=== PATIENT | female | born 2000 | race African-American/Black ===

== ENCOUNTER 2020-01-16 06:50 | Emergency (ER) | payer OTHER ==
[~2020-01-16] VITALS: Ht 182.9 cm; Wt 93.9 kg
[2020-01-16] MEDS ORDERED: SODIUM CHLORIDE 0.9% 1000ML 1,000 ML IV STA (07:21)
[2020-01-16] MEDS ORDERED: SODIUM CHLORIDE FLUSH 10 ML SYR INJ PRN (07:30)
--- NOTE | 2020-01-16 07:35 | Emergency Department Note ---
History of Present Illnes History of Present Illness Chief Complaint: high blood sugar(495) History of Present Illness This is a 19 year old female. was doing well until 2 hours ago then had a mild saavedra and mild bv then wx=548. no other symptoms. pt said that baseline blood glucose= 200's Historian: Patient Arrival Mode: Car History limited by: condition of the patient (normal) Popcorn Attendant Required: No Onset (how long ago): hour(s) (2) Location: n/a Quality: n/a Radiation: Reports non-radiation Severity: moderate Onset quality: gradual Duration (how long): hour(s) (2) Timing of current episode: constant Progression: unchanged Chronicity: recurrent Context: Denies recent illness, Denies recent surgery, Denies recent immobilization, Denies recent travel, Denies trauma/injury, Denies new medications, Denies hx of DVT/PE, Denies non-compliance w/ medications Relieving factors: none Exacerbating factors: none Associated symptoms: Reports other (see above) Treatments prior to arrival: none Past Medical/Family History Physician Review I have reviewed the patient's past medical and family history. Any updates have been documented here. Past Medical History Recent Fever: No Clinical Suspicion of Infectio: No New/Unexplained Change in Ment: No Past Medical History: Diabetes Past Surgical History: T&A Other Surgery: WISDOM TEETH REMOVAL BILAT CALF/ANKLE Social History Smoking Cessation: Never Smoker Alcohol Use: None Any Illegal Drug Use: No Other Last Tetanus: +utd Any Pre-Existing Lines (PICC,: No Review of Systems Review of Systems Constitutional: Reports no symptoms EENTM: Reports as per HPI Cardiovascular: Reports no symptoms Respiratory: Reports no symptoms Gastrointestinal: Reports no symptoms Genitourinary: Reports no symptoms Musculoskeletal: Reports no symptoms Integumentary: Reports no symptoms Neurological: Reports as per HPI Psychological: Reports no symptoms Endocrine: Reports no symptoms Hematological/Lymphatic: Reports no symptoms Review of other systems: All other systems negative Physical Exam Related Data Allergies: Uncoded Allergies: MINTS (Allergy, Unknown, 01/16/20) Triage Vital Signs Vital Signs Date Time Temp Pulse Resp B/P (MAP) Pulse Ox O2 Delivery O2 Flow Rate FiO2 01/16/20 07:21 97.9 93 16 153/86 100 Room Air Vital signs reviewed: Yes Physical Exam CONSTITUTIONAL Constitutional: Present well-developed, Present well-nourished HENT HENT: Present normocephalic, Present atraumatic, Present oropharynx clear/moist, Present nose normal HENT L/R: Present left ext ear normal, Present right ext ear normal EYES Eyes: Reports PERRL, Reports conjunctivae normal NECK Neck: Present ROM normal, Present supple PULMONARY Pulmonary: Present effort normal, Present breath sounds normal CARDIOVASCULAR Cardiovascular: Present regular rhythm, Present heart sounds normal, Present capillary refill normal, Present normal rate GASTROINTESTINAL Abdominal: Present soft, Present nontender, Present bowel sounds normal GENITOURINARY Genitourinary: Present exam deferred SKIN Skin: Present warm, Present dry MUSCULOSKELETAL Musculoskeletal: Present ROM normal NEUROLOGICAL Neurological: Present alert, Present oriented x 3, Present no gross motor or sensory deficits PSYCHOLOGICAL Psychological: Present mood/affect normal, Present judgement normal Results Laboratory Lab results reviewed: Yes Laboratory comments accucheck= 517, bmp normal except elevated bg, 2nd accucheck s/p meds/ivfs= 399 Assessment & Plan Medical Decision Making MDM see below Assessment & Plan Final Impression: (1) Hyperglycemia (2) Diabetes (3) Medication refill Depart Disposition: HOME, SELF-CARE Last Vital Signs Date Time Temp Pulse Resp B/P (MAP) Pulse Ox O2 Delivery O2 Flow Rate FiO2 01/16/20 07:21 97.9 93 16 153/86 100 Room Air Home Meds Active Scripts Insulin Lispro (HUMALOG) 100 Unit/1 Ml Cartridge, 0 SQ sliding scale, #1 BOTTLE 2 Refills Prov:JONATHAN BILL 01/16/20 Medications in the ED Sodium Chloride 10 ml PRN PRN INJ IV SITE FLUSH; Start 01/16/20 at 07:30; Stop 02/15/20 at 07:29; Status UNV Sodium Chloride 1,000 ml @ 1,000 mls/hr Q1H STAT IV ; Start 01/16/20 at 07:21; Stop 01/16/20 at 08:20 JONATHAN BILL Jan 16, 2020 07:34
[2020-01-16] MEDS ORDERED: SODIUM CHLORIDE 0.9% 1000ML 1,000 ML ONE (07:45)
[2020-01-16] MEDS ORDERED: INSULIN REGULAR, HUMAN 100 UNIT/1 ML 3ML VIAL IV ONE (07:45)
[2020-01-16] MEDS ORDERED: HUMALOG100 UNIT/1 SQ (09:06)
[2020-01-16 09:15] VITALS: BP 150/80
--- OUTSIDE RECORDS SUMMARY | 2020-01-16 09:26 | XMS REPORT | Clinical Summary ---
Author Author T[facility] Address Unknown Phone Unavailable Care Team Providers Care Job Analyst Name Role Phone Pamela Shetty PCP Unavailable Allergies No Known Allergies Medications End Date Status Medication Sig Dispensed Refills Start Date Active famotidine (PEPCID) 20 MG Take 1 tablet 30 tablet 0 tablet (20 mg total) 7 by mouth 2 (two) times daily. Active insulin aspart U-100 SLIDING SCALE 3 mL 0 (NOVOLOG FLEXPEN U-100 - TAKE 0 INSULIN) 100 unit/mL (3 NORMALLY mL) InPn PRESCRIBED. Active insulin glargine (LANTUS) SLIDING SCALE 15 mL 0 100 unit/mL (3 mL) InPn - TAKE 0 NORMALLY PRESCRIBED. 09/28/2019 Discontinued glucagon (GLUCAGON) 1 mg USE 0 10/08 injection DIRECTED FOR 8 SEVERE LOW BLOOD GLUCOSE: SEIZURE OR UNCONSCIOUS 09/28/2019 Discontinued insulin aspart U-100 Pt takes up 0 (NOVOLOG FLEXPEN U-100 to 50units a 8 INSULIN) 100 unit/mL InPn day. Need to set up followup appt for more refills 09/28/2019 Discontinued insulin glargine (LANTUS) Pt takes up 0 100 unit/mL (3 mL) InPn to 50 units a 8 day 09/28/2019 Discontinued fluconazole (DIFLUCAN) Take 1 tablet 2 tablet 0 0 150 MG tablet (150 mg 9 total) by mouth every third day for 2 doses. 10/03/2019 nitrofurantoin, Take 1 10 capsule 0 macrocrystal-monohydrate, capsule (100 0 (MACROBID) 100 MG capsule mg total) by mouth 2 (two) times daily for 5 days. Active Problems Not on file Encounters Care Team Description Date Type Specialty Teodoro Dhillon MD Acute urinary tract infection (Primary D x); Diabetes mellitus due to underlying condition, uncontrolled, with hyperglycemia (HCC); Dehydration; Leukocytosis, unspecified type 09/28/2019 Emergency Emergency Medicine 09/28/2019 Travel after 01/15/2019 Social History Date Tobacco Use Types Packs/Day Years Used Never Smoker Smokeless Tobacco: Never Used Alcohol Use Drinks/Week oz/Week Comments No Sex Assigned at Date Recorded Not on file Industry Job Start Date Occupation Not on file Not on file Not on file Travel End Travel History Travel Start No recent travel history available. Last Filed Vital Signs Time Taken Vital Sign Reading 09/28/2019 9:34 AM CDT Blood Pressure 128/72 09/28/2019 9:34 AM CDT Pulse 88 09/28/2019 7:19 AM CDT Temperature 37 C (98.6 F) 09/28/2019 9:34 AM CDT Respiratory Rate 18 09/28/2019 9:34 AM CDT Oxygen Saturation 98% - Inhaled Oxygen - Concentration 09/28/2019 7:19 AM CDT Weight 91.6 kg (202 lb) 09/28/2019 7:19 AM CDT Height 182.9 cm (6') 09/28/2019 7:19 AM CDT Body Mass Index 27.4 Plan of Treatment Not on file Procedures Comments Procedure Name Priority Date/Time Associated Diag nosis CBC W/PLT COUNT & AUTO STAT 09/28/2019 DIFFERENTIAL 7:52 AM CDT CBC W/PLT COUNT & AUTO STAT 09/28/2019 DIFFERENTIAL 7:52 AM CDT BASIC METABOLIC PANEL (7) STAT 09/28/2019 7:52 AM CDT SCREEN, URINE STAT 09/28/2019 7:52 AM CDT URINALYSIS W/ MICROSCOPIC STAT 09/28/2019 7:52 AM CDT after 01/15/2019 Results * CBC with platelet count + automated diff (09/28/2019 7:52 AM CDT) WBC 14.5 (H) 4.0 - 10.0 K/L [facility], [facility] [place] RBC 7.18 (H) 4.00 - 5.00 M/L [facility], [facility] [place] Hemoglobin 11.7 (L) 12.0 - 15.0 GM/DL [facility] [place] Hematocrit 40.9 36.0 - 45.0 % [facility] [place] MCV 56.9 (L) 82.0 - 99.0 fL [facility] [place] MCH 16.3 (L) 27.0 - 33.0 pg [facility] [place] MCHC 28.7 (L) 32.0 - 36.0 GM/DL [facility] [place] RDW 16.3 (H) 10.3 - 14.2 % [facility] [place] Platelets 418 150 - 430 K/CU MM [facility] [place] MPV 8.3 6.5 - 10.5 fL [facility] [place] % Neutros 60 % [facility] % Lymphs 30 % [facility] % Monos 8 % [facility] [place] % Eos 2 % [facility] [place] % Baso 1 % [facility] [place] # Neutros 8.71 (H) 1.80 - 8.00 K/L [facility] [place] # Lymphs 4.33 1.48 - 4.50 K/L [facility] [place] # Monos 1.12 0.00 - 1.30 K/L [facility] # Eos 0.23 0.00 - 0.50 K/L [facility], [facility] [place] # Baso 0.13 0.00 - 0.20 K/L [facility], [facility] Specimen Blood Performing Organization Address City/[facility] Ph one Number [address] [address] -[phone] [place] [address], [facility] * Screen, urine (09/28/2019 7:52 AM CDT) Preg Test, Ur Negative [facility] Specimen Urine Performing Organization Address [facility] [facility] [address] [address] [facility] -[address] [facility] [place] * Urinalysis w/Microscopic (09/28/2019 7:52 AM CDT) Color, UA Yellow [facility] Clarity, UA Slightly Cloudy [facility] [place] Specific Freeman, UA 1.025 1.001 - 1.035 [facility] pH, UA 5.5 5.0 - 8.0 [facility] Protein, UA >=300 mg/dL (A) Negative [facility] Glucose, UA 500 mg/dL (A) Negative [facility] Ketones, UA Trace (A) Negative [facility], [facility] [place] Bilirubin, UA Negative Negative [facility], [facility] [place] Blood, UA Large (A) Negative [facility] Nitrite, UA Negative Negative [facility] Leukocytes, UA Trace (A) Negative [facility], [facility] Urobilinogen, UA 1.0 0.2 - 1.0 mg/dL [facility], [facility], [facility] Bacteria, UA Many [facility] Yeast Few [facility] RBC, UA 20-50 /HPF [facility] WBC, UA 10-20 /HPF [facility] SQUAMOUS EPITHELIAL <5 /HPF [facility] [place] Specimen Source [facility] Specimen Urine Performing Organization Address City/State/Zipcode Ph one Number [facility] [address] [place] [address] [phone] [facility], [facility] [place] * Basic Metabolic Panel (09/28/2019 7:52 AM CDT) Sodium 136 135 - 148 meq/L [facility], [facility], [facility] Potassium 4.0 3.6 - 5.5 meq/L [facility], [facility], [facility] Chloride 103 98 - 106 meq/L [facility], [facility], [facility] CO2 22 (L) 24 - 32 meq/L [facility] BUN 11 10 - 26 mg/dL [facility], [facility] [place] Creatinine 0.52 0.50 - 1.20 mg/dL [facility], [facility] [place] Glucose 307 (H) 70 - 110 mg/dL [facility], [facility] [place] Calcium 9.5 8.5 - 10.5 mg/dL [facility], [facility] [place] EGFR 182Comment: ESTIMATED GFR IS mL/min/1.73 sq m [facility] NOT ACCURATE CREATININE FORMERLY [facility] CLEARANCE IN [facility] GLOMERULAR FILTRATION RATE. EMERGENCY CENTER, ESTIMATED GFR IS NOT [facility] APPLICABLE FOR DIALYSIS PATIENTS. Specimen Blood Performing Organization Address City/State/Zipcode Ph one Number [facility] [address] [place] [address] [phone] [facility], [facility] [place] after 01/15/2019 Insurance Payer Benefit Subscriber ID Type Phone Address Plan / Group [employer] - MGD CARE [employer] xxxxxxxxxxx HMO/POS HMO/POS/OP EN ACCESS [id number]
--- OUTSIDE RECORDS SUMMARY | 2020-01-16 09:26 | XMS REPORT | Continuity of Care Document ---
Author Author [facility] t Organization [facility] Address [address] [place] [address] Phone Unavailable Care Team Providers Care Flexographic Press Helper Name Role Phone DiogenesPauly Pamela PCP Unavailable Roberta Lopez MD Attphys Roberta LOPEZ Attphys Unavailable Ribeiro, Myrissa Attphys Unavailable Audelia Manrique Attphys Fatmata Marks Attphys Amparo Barriga Attphys Unavailable Adeel Garcia Attphys Unavailable Shelley Olvera Attphys Unavailable Sarita Tillman Attphys Unavailable Bhakhrani, Jackie Attphys Rosemary Pedro Attphys Sky Villalba Attphys Diana Fair Attphys Unavailable Hanny Lomas Attphys Mila Yoo Attphys Unavailable QAMAR NUBIA DHUHA Attphys Unavailable JOSUÉ SHAVER Attphys Unavailable GABI SANCHES Attphys Unavailable Audelia Manrique Unavailable Bhakhrani, Jackie Unavailable Payers Payer Name Policy Type Policy Number Effective Date Expiration Date Susi gibson CIGNA - MGD CARECIGNA HMO/POS/OPEN ACCESSxxxxxxxxxxxHMO/POS xxxxxxxxxxx [facility] [id number] 2018 00:00:00 2019 00:00 :00 [facility] [id number] 2018 00:00:00 2019 00:00 :00 [facility] Problems Condition Name Condition Details Condition Category Status Onset Date Resolution Date Last Treatment Date Treating Clinician Comments Source Exposure to sexually transmissible disorder Condition Active 2019-06-02 00:00:00 2019-06-04 14:28:02 [facility] Std screening Condition Active 2019-06-02 00:00:00 2019 14:28:02 [facility] Immunity status testing, antibody response Condition Active 2019-06-02 00:00:00 2019-06-04 14:28:02 [facility] Vaginitis Condition Active 2019-06-02 00:00:00 14:28:02 [facility] Microalbuminuria Condition Active 2019-06-02 00:00:00 2 14:28:02 [facility] BMI 32.0-32.9 Condition Active 2019-06-02 00:00:00 2019 14:28:02 [facility] Dietary surveillance and counseling Condition Active 2018 00:00:00 2019-03-01 10[facility]21:[facility] Condition Active 2019-02-02 00:00:00 2019-03-01 10:21:42 Burton [facility] ealt Mixed hyperlipidemia Condition Active 2019-02-28 00:00:00 2019-03-01 10:21:42 Audelia Manrique [facility] ealt Long-term (current) use of insulin Condition Active 02-28 00:00:00 2019-03-01 10:21:42 Audelia Manrique [facility] ealt Uncontrolled type II diabetes mellitus Condition Active 2 00:00:00 2019-03-01 10:21:42 Audelia Manrique [facility] 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 Born in [facility]. City: [facility] . State: [place]. Not employed. Highest education level: some college. Sex at : Female. Sexual orientation: Heterosexual. Gender identity: Female. Gender of partner(s): Male. Sexually Active: Yes. [facility] social history reviewed E&M 2019-06-02 15:17:34 2019-06-02 15:17 :34 reviewed today [facility] nutrition assessment, food choices, frequency per day, coffee and tea 2019-06-02 15:17:34 2019-06-02 15:17:34 1-2 cups/day [facility] nutrition assessment, food choices, frequency per day, sugary beverages 2019-06-02 15:17:34 2019-06-02 15:17:34 0 cups/day [facility], food choices, frequency per day, water 2019-06-02 15:17:34 2019-06-02 15:17:34 7+ cups/day [facility] nutrition assessment, food choices, servings per day, carbohydrates 2019-06-02 15:17:34 2019-06-02 15:17:34 7+ [facility] nutrition assessment, food choices, frequency per week , snack foods 2019-06-02 15:17:34 2019-06-02 15:17:34 1-2x/week [facility] nutrition assessment, food choices, freq uency per week, restaurant and fast food meals 2019-06-02 15:17:34 2019-06-02 15:17:34 [facility]day [facility] assessment, food choices, frequency per week , fried foods 2019-06-02 15:17:34 2019-06-02 15:17:34 Rarely/Never [facility] nutrition assessment, food choices, frequency per week , sweets 2019-06-02 15:17:34 2019-06-02 15:17:34 1-2x/week [facility] nutrition assessment, food choices, frequency per week , fats and oils 2019-06-02 15:17:34 2019-06-02 15:17:34 Rarely/Never [facility] nutrition assessment, food choices, frequency per week , vegetable proteins 2019-06-02 15:17:34 2019-06-02 15:17:34 Rarely/Never [facility] nutrition assessment, food choices, frequency per week , fish and seafood 2019-06-02 15:17:34 2019-06-02 15:17:34 Rarely/Never [facility] nutrition assessment, food choices, frequency per week , processed meats 2019-06-02 15:17:34 2019-06-02 15:17:34 1-2x/week [facility] nutrition assessment, food choices, freq uency per week, deli meats and cold cuts 2019-06-02 15:17:34 2019-06-02 15:17:34 Rarely/Never [facility] nutrition assessment, food choices, frequency per week , chicken and turkey 2019-06-02 15:17:34 2019-06-02 15:17:34 1-2x/week [facility] nutrition assessment, food choices, frequency per week , pork 2019-06-02 15:17:34 2019-06-02 15:17:34 Rarely/Never [facility] nutrition assessment, food choices, frequency per week , red meat 2019-06-02 15:17:34 2019-06-02 15:17:34 Rarely/Never [facility] nutrition assessment, food choices, frequency per week , dairy items 2019-06-02 15:17:34 2019-06-02 15:17:34 1-2x/week [facility] nutrition assessment, food choices, frequency per week , vegetables 2019-06-02 15:17:34 2019-06-02 15:17:34 Rarely/Never [facility] nutrition assessment, 24-hour food intake recall, even ing snack 2019-06-02 15:17:34 2019-06-02 15:17:34 2 oranges, piece of cheese, 2 sugar free jellos and 4 grapes [facility] nutrition assessment, food choices, frequency per week , fruits 2019-06-02 15:17:34 2019-06-02 15:17:34 1-2x/week [facility], 24-hour food intake recall, dinner 202 15:17:34 2019-06-02 15:17:34 water [facility] nutrition assessment, 24-hour food intake recall, breakfast 2019-06-02 15:17:34 2019-06-02 15:17:34 enchilada [facility] nutrition assessment, 24-hour food intake recall, lunch 2019 15:17:34 2019-06-02 15:17:34 chicken , burger 1 taco and strawberry shake [facility] nutrition assessment, history, food intake 2019-06-02 15:17: 34 2019-06-02 15:17:34 Good [facility] nutrition assessment, history, do you do any exercise or physical activity? 2019-06-02 15:17:34 2019-06-02 15:17:34 [facility], history, do you do your own cooking and/or grocery shopping? 2019-06-02 15:17:34 2019-06-02 15:17:34 [facility], history, any weight change in th e past 6 months? 2019-06-02 15:17:34 2019-06-02 15:17:34 Yes [facility] lactose intolerant diet 2019-06-02 15:17:34 2019-06-02 15:17:34 No [facility] nutrition assessment, history, do you avoid any certai n foods or drinks? 2019-06-02 15:17:34 2019-06-02 15:17:34 [facility] drug use, illicit 2019-06-02 14:21:58 2019-06-02 14:21:58 Never [facility] alcohol use 2019-06-02 14:21:58 2019-06-02 14:21:58 Never [facility] sexual orientation 2019-06-02 14:21:58 2019-06-02 14:21:58 Heterosexu al On [facility] assessment of health literacy (NCQA [facility] 2014 Standard s, 3C10) 2019-06-02 14:21:58 2019-06-02 14:21:58 Adequate [facility] is there any chance that you could be ? 2019-06-02 1 4:21:58 2019-06-02 14:21:58 No [facility] passive cigarette smoke exposure 2019-06-02 14:21:58 2019-06-02 14:21 :58 No [facility] sex at 2019-02-28 10:26:00 2019-02-28 10:26:00 Female [facility] Smoking Status Start Date Stop Date Source Never smoker [facility] Medications Ordered Medication Name Filled Medication Name Start Date Stop Da te Current Medication? Ordering Clinician Indication Dosage Frequency Signature (SIG) Comments Components Source insulin aspart U-100 (NOVOLOG FLEXPEN U-100 INSULIN) 100 uni t/mL (3 mL) [facility] 2019-09-28 00:00:00 Yes SLIDING SCAL E - TAKE NORMALLY [facility]CRIB[facility]. [facility] glarg[facility] (LANTUS) 100 unit/mL (3 mL) [facility] 2019-09-28 00:00:00 Yes SLIDING SCALE - TAKE NORMALLY PRESCRIBED. [facility] nitrofurantoin, macrocrystal-monohydrate, (MACROBID) 100 MG capsule 2019-09-28 00:00:00 2019-10-03 23:59:00 No 100mg Q.5D Take 1 capsule (100 mg total) by mouth 2 (two) times daily for 5 days. [facility] DIFLUCAN (FLUCONAZOLE) 150 MG TABS 2019-06-02 00:00:00 Yes Audelia Manrique 1{Tablet} 1xD 1 by mouth daily for 2 days [facility] (ATORVASTATIN CALCIUM) 10 MG TABS 2019-03-07 00:00:00 Yes Audelia Manrique take one tab By Mouth take at bedtime fo r cholesterol [facility] INSUPEN PEN NEEDLES (INSULIN PEN NEEDLE) 32G X 4 MM 2018-05 00:00:00 Yes Audelia Manrique use with insulin pens as dire cted [facility] LANTUS SOLOSTAR (INSULIN GLARGINE) 100 UNIT/ML SOP 2018-05 00:00:00 Yes Audelia Manrique inject 30 u nits subcutaneously take at bedtime for diabetes [facility] NOVOLOG FLEXPEN (INSULIN ASPART) 100 UNIT/ML SOP 00:00:00 Yes Audelia Manrique inject 15 u nits before meals three times daily subcutaenous for diabetes [facility] (CIPROFLOXACIN HCL) 0.3 % [facility] 2019-02-18 00:00:00 2019-02 00:00:00 No Jackie Bhakhrani 1{Drop} 4xD 1 drop in the left eye four times a day for 7 days [facility] fluconazole (DIFLUCAN) 150 MG tablet 2018-10-29 00:00: 00 2019-09-28 00:00:00 No 150mg Take 1 tablet ( 150 mg total) by mouth every third day for 2 doses. [facility] glucagon (GLUCAGON) 1 mg injection 2017-10-08 00:00:00 00:00:00 No USE DIRECTED FOR SEVERE LOW BLOOD GLU COSE: SEIZURE OR UNCONSCIOUS [facility] insulin glargine (LANTUS) 100 unit/mL (3 mL) [facility] 2017-10-08 00:00:00 2019-09-28 00:00:00 No Pt takes up to 50 un its a day [facility] insulin aspart U-100 (NOVOLOG FLEXPEN U-100 INSULIN) 100 uni t/mL [facility] 2017-05-07 00:00:00 2019-09-28 00:00:00 No Pt takes up to 50units a day. Need to set up followup appt for more refills [facility] famotidine (PEPCID) 20 MG tablet 2016-06-08 00:00:00 Yes 20mg Q.5D Take 1 tablet (20 mg total) by mouth 2 (two) times daily. [facility] Vital Signs Vital Name Observation Time Observation Value Comments Source Systolic blood pressure 2019-09-28 09:34:00 128 mm[Hg] [facility] Diastolic blood pressure 2019-09-28 09:34:00 72 mm[Hg] [facility] Heart rate 2019-09-28 09:34:00 88 /min [facility] Respiratory rate 2019-09-28 09:34:00 18 /min [facility] Oxygen saturation in Arterial blood by Pulse oximetry 09-27 09:34:00 98 /min [facility] Body temperature 2019-09-28 07:19:00 37 Cherelle [facility] Body height 2019-09-28 07:19:00 182.9 cm [facility] Body weight Measured 2019-09-28 07:19:00 91.627 kg [facility] BMI 2019-09-28 07:19:00 27.40 kg/m2 [facility] weight E&M 2019-06-02 15:17:34 207 [lb_av] [facility] weight in kilograms E&M 2019-06-02 15:17:34 94.09 kg [facility] height E&M 2019-06-02 15:17:34 67 [in_i] [facility] oxygen saturation, oximetry 2019-06-02 14:21:58 98 % [facility] blood pressure, diastolic 2019-06-02 14:21:58 77 mm[Hg] [facility] blood pressure, systolic 2019-06-02 14:21:58 119 mm[Hg] [facility] pulse rate E&M 2019-06-02 14:21:58 88 /min [facility] temperature E&M 2019-06-02 14:21:58 97.7 [degF] [facility] 2019-06-02 14:21:58 207 [lb_av] [facility] weight in kilograms E&M 2019-06-02 14:21:58 94.09 kg [facility] temperature site 2019-06-02 14:21:58 oral Lega [facility] height in centimeters E&M 2019-06-02 14:21:58 170.18 cm [facility] oxygen saturation, oximetry 2019-02-28 10:26:00 98 % [facility] blood pressure, diastolic 2019-02-28 10:26:00 82 mm[Hg] [facility] blood pressure, systolic 2019-02-28 10:26:00 121 mm[Hg] [facility] pulse rate E&M 2019-02-28 10:26:00 97 /min [facility] temperature E&M 2019-02-28 10:26:00 98.8 [degF] [facility] 2019-02-28 10:26:00 oral Lega [facility] weight E&M 2019-02-28 10:26:00 206 [lb_av] [facility] weight percentile 2019-02-28 10:26:00 98 [facility] weight in kilograms E&M 2019-02-28 10:26:00 93.64 kg [facility] height in centimeters E&M 2019-02-28 10:26:00 170.18 cm [facility] height percentile 2019-02-28 10:26:00 86 [facility] pulse rate E&M 2019-02-22 12:12:28 95 /min [facility] blood pressure, diastolic 2019-02-22 12:12:28 95 mm[Hg] [facility] blood pressure, systolic 2019-02-22 12:12:28 142 mm[Hg] [facility] Procedures Procedure Date / Time Performed Performing Clinician [facility] e URINALYSIS W/ MICROSCOPIC 2019-09-28 07:52:00 Teodoro Lopez [facility] SCREEN, URINE 2019-09-28 07:52:00 Teodoro Lopez [facility] BASIC METABOLIC PANEL (7) 2019-09-28 07:52:00 Teodoro Lopez [facility] CBC W/PLT COUNT & AUTO DIFFERENTIAL 2019-09-28 07:52:00 Susi Lopez [facility] Venipuncture 2019-06-02 15:08:19 BurtonJensAudelia [facility] Finger Stick Glucose 2019-06-02 15:08:19 Burton Audelia Hodges [facility] HEMOGLOBIN A1C - In House 2019-06-02 15:07:58 Burton Mickie micaleonardo [facility] Vaccines Ordered - Print Consent/Declination Forms 2019-02-02 8 11:25:56 BurtonAudelia guerrero [facility] Venipuncture 2019-02-28 11:22:07 BurtonAudelia [facility] Finger Stick Glucose 2019-02-28 11:21:51 Burton Audelia Mark [facility] HEMOGLOBIN A1C - In House 2019-02-28 10:26:29 Burton Mickie tong [facility] New Patient [facility] - [id number] 2019-02-18 14:13:31 Jackie Santana [facility] Encounters Start Date/Time End Date/Time Encounter Type Admission Type [facility] Care Department Encounter ID Source 2019-06-03 00:00:00 2019-06-03 00:00:00 Office Visit Marcell Ribe[facility] [place] [facility] Encounter/[id number] [facility] 2019-06-03 00:00:00 2019-06-03 00:00:00 Office Visit Audelia Townsend [facility] Encounter/[id number] [facility] 2019-06-02 00:00:00 2019-06-02 00:00:00 Office Visit Audelia English Myrissa [facility] Encounter/[id number] [facility] 2019-06-02 00:00:00 2019-06-02 00:00:00 Office Visit Fatmata Pena [facility] [place] Nutrition Encounter/[id number] [facility] 2019-06-02 00:00:00 2019-06-02 00:00:00 Office Visit Audelia Townsend [facility] Encounter/[id number] [facility] 2019-06-02 00:00:00 2019-06-02 00:00:00 Office Visit Audelia English Dianna Perez, Emily [facility] Encounter/[id number] [facility] 2019-04-08 00:00:00 2019-04-08 00:00:00 Office Visit Fatmata Pena [facility] Encounter/[id number] [facility] 2019-03-07 00:00:00 2019-03-07 00:00:00 Office Visit Alexandra Jeffery Christelle LC [facility] Encounter/[id number] [facility] 2019-02-28 00:00:00 2019-02-28 00:00:00 Office Visit Audelia Townsend [facility] Encounter/[id number] [facility] 2019-02-28 00:00:00 2019-02-28 00:00:00 Office Visit Audelia English Daisy J [facility] [place] [facility] Encounter/[id number] [facility] 2019-02-28 00:00:00 2019-02-28 00:00:00 Office Visit Audelia Townsend [facility] [place] [facility] Encounter/[id number] [facility] 2019-02-28 00:00:00 2019-02-28 00:00:00 Office Visit Audelia Townsend [facility] Encounter/[id number] [facility] 2019-02-28 00:00:00 2019-02-28 00:00:00 Office Visit Audelia English Dunia Gonzalez, Dianna Guzman, Jessica [facility] [place] [facility] Encounter/[id number] [facility] 2019-02-25 00:00:00 2019-02-25 00:00:00 Office Visit Jackie Rodriguez [facility] [place] [facility] Encounter/[id number] [facility] 2019-02-25 00:00:00 2019-02-25 00:00:00 Office Visit B Jackie chung Cecilia Guzman, Jessica Hernandez, Christelle [facility] [place] [facility] Encounter/[id number] [facility] 2019-02-22 00:00:00 2019-02-22 00:00:00 Office Visit VillalbaSky [facility] [place] [facility] Encounter/[id number] [facility] 2019-02-22 00:00:00 2019-02-22 00:00:00 Office Visit C Sky morel Roseann [facility] [place] [facility] Encounter/[id number] [facility] 2019-02-18 00:00:00 2019-02-18 00:00:00 Office Visit Olga Lomasn [facility] Encounter/[id number] [facility] 2019-02-18 00:00:00 2019-02-18 00:00:00 Office Visit Jackie Rodriguez [facility] [place] [facility] Encounter/[id number] [facility] 2019-02-18 00:00:00 2019-02-18 00:00:00 Office Visit B Jackie chung Cecilia [facility] [place] [facility] Encounter/[id number] [facility] 2018-12-17 00:00:00 2018-12-17 00:00:00 Office Visit Mila Mckeon [facility] [place] Encounter/[id number] [facility] Results Test Description Test Time Test Comments Results Result Comments Source CBC with platelet count + automated diff 2019-09-28 08:20:00 Test Item WBC (test code = 6690-2) 14.5 4.0- 10.0 K/L H RBC (test code = 789-8) 7.18 4.00- 5.00 M/L H MCHC (test code = 786-4) 28.7 32.0- 36.0 GM/DL L Hematocrit (test code = 4544-3) 40.9 % 36-45 MCV (test code = 787-2) 56.9 fL 82-99 L MCH (test code = 785-6) 16.3 pg 27-33 L RDW (test code = 788-0) 16.3 % 10.3-14.2 H Platelets (test code = 777-3) 418 150- 430 K/CU MM MPV (test code = 17644-7) 8.3 fL 6.5-10.5 % Neutros (test code = 429) 60 % % Lymphs (test code = 430) 30 % % Monos (test code = 431) 8 % % Eos (test code = 432) 2 % % Baso (test code = 437) 1 % # Neutros (test code = 670) 8.71 1.80- 8.00 K/L H # Lymphs (test code = 414) 4.33 1.48- 4.50 K/L # Monos (test code = 415) 1.12 0.00- 1.30 K/L # Eos (test code = 416) 0.23 0.00- 0.50 K/L # Baso (test code = 417) 0.13 0.00- 0.20 K/L Lab Interpretation (test code = 95070-8) Abnormal [facility] W/PLT COUNT & AUTO [id number] 08:20:00* Test Item Value Reference Range Interpretation Comments WHITE BLOOD CELL COUNT (BEAKER) (test code = 775) 14.5 K/ L 4.0- 10.0 H RED BLOOD CELL COUNT (BEAKER) (test code = 761) 7.18 M/ L 4.00-5 .00 H HEMOGLOBIN (BEAKER) (test code = 410) 11.7 GM/DL 12.0-15.0 L HEMATOCRIT (BEAKER) (test code = 411) 40.9 % 36.0-45.0 MEAN CORPUSCULAR VOLUME (BEAKER) (test code = 753) 56.9 fL 82. 0-99.0 L MEAN CORPUSCULAR HEMOGLOBIN (BEAKER) (test code = 751) 16.3 pg 27.0-33.0 L MEAN CORPUSCULAR HEMOGLOBIN CONC (BEAKER) (test code = 752) 28.7 GM/DL 32.0-36.0 L RED CELL DISTRIBUTION WIDTH (BEAKER) (test code = 412) 16.3 % 10.3-14.2 H PLATELET COUNT (BEAKER) (test code = 756) 418 K/CU MM 150-430 MEAN PLATELET VOLUME (BEAKER) (test code = 754) 8.3 fL 6.5-10 .5 NEUTROPHILS RELATIVE PERCENT (BEAKER) (test code = 429) 60 % LYMPHOCYTES RELATIVE PERCENT (BEAKER) (test code = 430) 30 % MONOCYTES RELATIVE PERCENT (BEAKER) (test code = 431) 8 % EOSINOPHILS RELATIVE PERCENT (BEAKER) (test code = 432) 2 % BASOPHILS RELATIVE PERCENT (BEAKER) (test code = 437) 1 % NEUTROPHILS ABSOLUTE COUNT (BEAKER) (test code = 670) 8.71 K/ L 1.80-8.00 H LYMPHOCYTES ABSOLUTE COUNT (BEAKER) (test code = 414) 4.33 K/ L 1.48-4.50 MONOCYTES ABSOLUTE COUNT (BEAKER) (test code = 415) 1.12 K/ L 0. 00-1.30 EOSINOPHILS ABSOLUTE COUNT (BEAKER) (test code = 416) 0.23 K/ L 0.00-0.50 BASOPHILS ABSOLUTE COUNT (BEAKER) (test code = 417) 0.13 K/ L 0. 00-0.20 Basic Metabolic [id number] 08:09:00* Test Item Value Reference Range Interpretation Comments Sodium (test code = 2951-2) 136 meq/L 135-148 Potassium (test code = 2823-3) 4.0 meq/L 3.6-5.5 Chloride (test code = 2075-0) 103 meq/L 98-106 CO2 (test code = 2027-9) 22 meq/L 24-32 L BUN (test code = 3094-0) 11 mg/dL 10-26 Creatinine (test code = 2160-0) 0.52 mg/dL 0.5-1.2 Glucose (test code = 2345-7) 307 mg/dL 70-110 H Calcium (test code = 18823-2) 9.5 mg/dL 8.5-10.5 EGFR (test code = 81553-8) 182 mL/min/1.73 sq m ESTIMATED GFR IS NOT ACCURATE CREATININE CLEARANCE IN PREDICTING GLOMERULAR FILTRATION RATE. ESTIMATED GFR IS NOT APPLICABLE FOR DIALYSIS PATIENTS. Lab Interpretation (test code = 70794-5) [facility]normal [facility] [id number] 08:09:00* Test Item Value Reference Range Interpretation Comments SODIUM (BEAKER) (test code = 381) 136 meq/L 135-148 POTASSIUM (BEAKER) (test code = 379) 4.0 meq/L 3.6-5.5 CHLORIDE (BEAKER) (test code = 382) 103 meq/L 98-106 CO2 (BEAKER) (test code = 355) 22 meq/L 24-32 L BLOOD UREA NITROGEN (BEAKER) (test code = 354) 11 mg/dL 10-26 CREATININE (BEAKER) (test code = 358) 0.52 mg/dL 0.50-1.20 GLUCOSE RANDOM (BEAKER) (test code = 652) 307 mg/dL 70-110 H CALCIUM (BEAKER) (test code = 697) 9.5 mg/dL 8.5-10.5 EGFR (BEAKER) (test code = 1092) 182 mL/min/1.73 sq m ESTIMATED GFR IS NOT ACCURATE CREATININE CLEARANCE IN PREDICTING GLOMERULAR FILTRATION RATE. ESTIMATED GFR IS NOT APPLICABLE FOR DIALYSIS PATIENTS. Urinalysis w/Ynkbczqgxki8917-95-44 08:07:00* Test Item Value Reference Range Interpretation Comments Color, UA (test code = 5778-6) Yellow Clarity, UA (test code = 5767-9) Slightly Cloudy Specific [place], UA (test code = 5811-5) 1.025 1.001-1.035 pH, UA (test code = 5803-2) 5.5 5.0-8.0 Protein, UA (test code = 50935-1) >=300 mg/dL Negative A Glucose, UA (test code = 365) 500 mg/dL Negative A Ketones, UA (test code = 2514-8) Trace Negative A Bilirubin, UA (test code = 08339-3) Negative Negative Blood, UA (test code = 28134-5) Large Negative A Nitrite, UA (test code = 5802-4) Negative Negative Leukocytes, UA (test code = 5799-2) Trace Negative A Urobilinogen, UA (test code = 04486-5) 1.0 mg/dL 0.2-1 Bacteria, UA (test code = 01744-9) Many Yeast (test code = 51787-3) Few RBC, UA (test code = 799-7) 20-50 /HPF WBC, UA (test code = 82628-7) 10-20 /HPF SQUAMOUS EPITHELIAL (test code = 75192-6) <5 /HPF Specimen Source (test code = 2795) Lab Interpretation (test code = 62873-9) [facility] [id number] 08:07:00* Test Item Value Reference Range Interpretation Comments COLOR (BEAKER) (test code = 470) Yellow CLARITY (BEAKER) (test code = 469) Slightly Cloudy SPECIFIC GRAVITY UA (BEAKER) (test code = 468) 1.025 1.001-1 .035 PH UA (BEAKER) (test code = 467) 5.5 5.0-8.0 PROTEIN UA (BEAKER) (test code = 464) >=300 mg/dL Negative A GLUCOSE UA (BEAKER) (test code = 365) 500 mg/dL Negative A KETONES UA (BEAKER) (test code = 371) Trace Negative A BILIRUBIN UA (BEAKER) (test code = 462) Negative Negative BLOOD UA (BEAKER) (test code = 461) Large Negative A NITRITE UA (BEAKER) (test code = 465) Negative Negative LEUKOCYTE ESTERASE UA (BEAKER) (test code = 466) Trace Negat moni A UROBILINOGEN UA (BEAKER) (test code = 463) 1.0 mg/dL 0.2-1.0 BACTERIA (BEAKER) (test code = 517) Many YEAST (BEAKER) (test code = 1585) Few RBC UA-MANUAL (BEAKER) (test code = 1659) 20-50 /HPF WBC UA-MANUAL (BEAKER) (test code = 1661) 10-20 /HPF SQUAMOUS EPITHELIAL MANUAL (BEAKER) (test code = 1663) <5 /HPF SOURCE(BEAKER) (test code = 2795) Screen, [id number] 08:00:00* Test Item Value Reference Range Interpretation Comments Preg Test, Ur (test code = 2112-1) Negative [facility], [id number] 08:00:00* Test Item Value Reference Range Interpretation Comments TEST URINE (BEAKER) (test code = 583) Negative hepatitis B surface fcqxbap0598-47-65 15:44:00* Test Item Value Reference Range Interpretation Comments hepatitis B surface antigen (test code = 79) Negative [facility], oljse9985-29-73 15:44:00* Test Item Value Reference Range Interpretation Comments hepatitis C antibody, serum (test code = 2722) <0.1 0.0-0.9 [facility]HIV-CMIA (Chemiluminescent Microparticle Immuno Assay) 2019-06-02 15:44:00* Test Item Value Reference Range Interpretation Comments HIV-CMIA (Chemiluminescent Microparticle Immuno Assay) (test code = 111667) Non Reactive Non Reactive [facility] Centerrapid plasma reagin antibody, ftpdl0926-04-45 15:44:00* Test Item Value Reference Range Interpretation Comments rapid plasma reagin antibody, serum (test code = 308) Non Reacti ve Non Reactive [facility]hepatitis B surface zbsbwgll3471-50-84 15:44:00* Test Item Value Reference Range Interpretation Comments hepatitis B surface antibody (test code = 78) Reactive [facility]blood glucose, xirybj3131-44-65 14:21:58* Test Item Value Reference Range Interpretation Comments blood glucose, random (test code = 8) 383 mg/dL [facility]hemoglobin A1C, blood, as % of total pyjdtaqopc2708-69-12 14:21:58* Test Item Value Reference Range Interpretation Comments hemoglobin A1C, blood, as % of total hemoglobin (test code = 4548-4 ) 12.1 % [facility]beta HCG, urine, deduxpwkiijjmgrt2322-60-19 14:21:58* Test Item Value Reference Range Interpretation Comments beta HCG, urine, semiquantitative (test code = 2106-3) negative [facility] CenterpH, urine, alxqrsbigepudkpn0179-83-28 14:21:58* Test Item Value Reference Range Interpretation Comments pH, urine, semiquantitative (test code = 324) 5.0 [facility] Centerspecific gravity, nnafn3971-65-43 14:21:58* Test Item Value Reference Range Interpretation Comments specific gravity, urine (test code = 325) 1.020 [facility]erglucose, urine, bghewllwpuipiosx8587-75-07 14:21:58* Test Item Value Reference Range Interpretation Comments glucose, urine, semiquantitative (test code = 123) 4+ [facility]bilirubin, oyklo7168-72-47 14:21:58* Test Item Value Reference Range Interpretation Comments bilirubin, urine (test code = 319) negative [facility] Centerketones, urine, by test lqlek6061-85-89 14:21:58* Test Item Value Reference Range Interpretation Comments ketones, urine, by test strip (test code = 322) negative [facility] Centerblood in urine (hemoglobin) by dtwtxtpl2668-35-65 14:21:58* Test Item Value Reference Range Interpretation Comments blood in urine (hemoglobin) by dipstick (test code = 4998) negative [facility] Centerprotein, urine, semiquantitative (dipstick)2019-06-02 14:21:58* Test Item Value Reference Range Interpretation Comments protein, urine, semiquantitative (dipstick) (test code = 1753-3) ne gative [facility] Centerurobilinogen, urine, semiquantitative (dipstick) 2019-06-02 14:21:58* Test Item Value Reference Range Interpretation Comments urobilinogen, urine, semiquantitative (dipstick) (test code = 326) negative [facility] Centernitrite, urine, mzhqytaqyhknnwwp9100-34-26 14:21:58* Test Item Value Reference Range Interpretation Comments nitrite, urine, semiquantitative (test code = 323) negative [facility] Centerleukocyte esterase, urine, by tjiyaosf1705-36-93 14:21:58 * Test Item Value Reference Range Interpretation Comments leukocyte esterase, urine, by dipstick (test code = 327) negative [facility] Centerappearance, xopzx2682-07-42 14:21:58* Test Item Value Reference Range Interpretation Comments appearance, urine (test code = 328) clear [facility] Centerurine puawp5011-11-51 14:21:58* Test Item Value Reference Range Interpretation Comments urine color (test code = 2751) yellow [facility] Centermicroalbumin/creatinine ratio, zzbkq0073-74-60 12:31:00* Test Item Value Reference Range Interpretation Comments microalbumin/creatinine ratio, urine (test code = 87692-4) 3 7.2 MG/G CREAT 0.0-30.0 H [facility] Centermicroalbumin/total urine zianzx7073-97-23 12:31:00* Test Item Value Reference Range Interpretation Comments microalbumin/total urine volume (test code = 60333-5) 34.4 mg/L [facility] Healthcreatinine, random, ikqli8832-90-94 12:31:00* Test Item Value Reference Range Interpretation Comments creatinine, random, urine (test code = 5167) 92.4 mg/dL [facility] Centerthyroid stimulating hormone, phnns3615-63-54 11:45:00* Test Item Value Reference Range Interpretation Comments thyroid stimulating hormone, serum (test code = 29) 1.630 u[iU]/ mL 0.450-4.500 [facility] CenterLDL cholesterol, nusdx2716-39-87 11:45:00* Test Item Value Reference Range Interpretation Comments LDL cholesterol, serum (test code = 2089-1) 146 mg/dL 0-109 H [facility] Centervery low density mowvgixmblvp9505-24-90 11:45:00* Test Item Value Reference Range Interpretation Comments very low density lipoproteins (test code = 2548) 28 mg/dL 5-40 [facility] CenterHDL cholesterol, nvuaq9123-41-31 11:45:00* Test Item Value Reference Range Interpretation Comments HDL cholesterol, serum (test code = 2085-9) 37 mg/dL >39 L [facility]ertriglyceride, serum, lkokgzc6380-12-70 11:45:00* Test Item Value Reference Range Interpretation Comments triglyceride, serum, fasting (test code = 2571-8) 142 mg/dL 0-89 H [facility] Centercholesterol, dbqmw6544-67-98 11:45:00* Test Item Value Reference Range Interpretation Comments cholesterol, serum (test code = 2093-3) 211 mg/dL 100-169 H [facility] Centeralanine aminotransferase (SGPT), tbewt8632-19-37 11:45:00 * Test Item Value Reference Range Interpretation Comments alanine aminotransferase (SGPT), serum (test code = 40) 10 1/L 0-32 [facility] Centeraspartate aminotransferase (SGOT), esbnb5954-07-86 11:45:00* Test Item Value Reference Range Interpretation Comments aspartate aminotransferase (SGOT), serum (test code = 39) 11 1/L 0-40 [facility]alk[facility] phosphatase, ximvl4771-02-23 11:45:00* Test Item Value Reference Range Interpretation Comments alkaline phosphatase, serum (test code = 3) 98 1/L 39-117 [facility] Healthbilirubin, serum, gsezp0312-31-56 11:45:00* Test Item Value Reference Range Interpretation Comments bilirubin, serum, total (test code = 43) 0.2 mg/dL 0.0-1.2 [facility] Healthalbumin/globulin ratio, howbu3362-94-74 11:45:00* Test Item Value Reference Range Interpretation Comments albumin/globulin ratio, serum (test code = 146) 1.4 1.2-2. 2 [facility] Healthglobulin, ubiaa1934-24-52 11:45:00* Test Item Value Reference Range Interpretation Comments globulin, serum (test code = 3059) 3.1 1.5-4.5 [facility] Healthalbumin, [id number] 11:45:00* Test Item Value Reference Range Interpretation Comments albumin, serum (test code = 2) 4.3 g/dL 3.5-5.5 [facility] Healthprotein, total, ejvoj1500-01-33 11:45:00* Test Item Value Reference Range Interpretation Comments protein, total, serum (test code = 36) 7.4 g/dL 6.0-8.5 [facility] Healthcalcium, kzihw0717-45-20 11:45:00* Test Item Value Reference Range Interpretation Comments calcium, serum (test code = 11) 9.5 mg/dL 8.7-10.2 [facility] Centercarbon dioxide, venous vpzmi7180-20-71 11:45:00* Test Item Value Reference Range Interpretation Comments carbon dioxide, venous blood (test code = 15) 22 mmol/L 20-29 [facility] Healthchloride, tzprz4086-40-36 11:45:00* Test Item Value Reference Range Interpretation Comments chloride, serum (test code = 13) 99 mmol/L 96-106 [facility] Healthpotassium, nldcu4019-78-41 11:45:00* Test Item Value Reference Range Interpretation Comments potassium, serum (test code = 35) 4.5 mmol/L 3.5-5.2 [facility] Centersodium, kqark5892-87-28 11:45:00* Test Item Value Reference Range Interpretation Comments sodium, serum (test code = 159) 136 mmol/L 134-144 [facility] Centerurea nitrogen/creatinine ratio, bedcu9348-92-94 11:45:00 * Test Item Value Reference Range Interpretation Comments urea nitrogen/creatinine ratio, serum (test code = 2462) 10 9-23 [facility] CentereGFR if Nzwgaoen1446-99-31 11:45:00* Test Item Value Reference Range Interpretation Comments eGFR if (test code = 683905) 145 mL/min/((173/100) .m2) >59 [facility] CenterEstimated Glomerular Filtration Rate (calc)2019-02-28 11:45:00* Test Item Value Reference Range Interpretation Comments Estimated Glomerular Filtration Rate (calc) (test code = 59388) 126 mL/min/((173/100).m2) >59 [facility] Centercreatinine, [id number] 11:45:00* Test Item Value Reference Range Interpretation Comments creatinine, serum (test code = 18) 0.70 mg/dL 0.57-1.00 [facility] Centerurea nitrogen, [id number] 11:45:00* Test Item Value Reference Range Interpretation Comments urea nitrogen, blood (test code = 9) 7 mg/dL 6-20 [facility] Centerblood glucose, fdphdx6175-95-12 11:45:00* Test Item Value Reference Range Interpretation Comments blood glucose, random (test code = 8) 313 mg/dL 65-99 H [facility] Centerimmature granulocytes, percentage of total cells, blood 2019-02-28 11:45:00* Test Item Value Reference Range Interpretation Comments immature granulocytes, percentage of total cells, bloo d (test code = 895128) 0 % [facility] Centerbasophil count, umllalbh9742-05-45 11:45:00* Test Item Value Reference Range Interpretation Comments basophil count, absolute (test code = 00961) 0.0 x10E3/uL 0.0-0.2 [facility] CenterEosinophil Absolute Kivrd8727-38-22 11:45:00* Test Item Value Reference Range Interpretation Comments Eosinophil Absolute Count (test code = 945165) 0.1 X10E3/UL 0.0-0.4 [facility] Centermonocyte count, blood, ghgbttvgw8218-22-57 11:45:00* Test Item Value Reference Range Interpretation Comments monocyte count, blood, automated (test code = 3076) 0.6 X10E3/UL 0. 1-0.9 [facility] Centerlymphocyte count, blood, mynyvhuhk5405-07-26 11:45:00* Test Item Value Reference Range Interpretation Comments lymphocyte count, blood, automated (test code = 3074) 3.2 X10E3/UL 0.7-3.1 H [facility] CenterAbsolute Wiqgzuxxgzs0994-69-12 11:45:00* Test Item Value Reference Range Interpretation Comments Absolute Neutrophils (test code = 90022) 6.1 X10E3/UL 1.4-7.0 [facility] Centerbasophils as percent of blood opklnvgkgu7247-93-19 11:45:00* Test Item Value Reference Range Interpretation Comments basophils as percent of blood leukocytes (test code = 2426) 0 % [facility] Centereosinophils as percent of blood ubjfcbnitv1048-73-13 11:45:00* Test Item Value Reference Range Interpretation Comments eosinophils as percent of blood leukocytes (test code = 4170) 1 % [facility] Healthmonocytes as percent of blood ozvqfsdyet1166-63-41 11:45:00* Test Item Value Reference Range Interpretation Comments monocytes as percent of blood leukocytes (test code = 2421) 6 % [facility] Centerlymphocytes as percent of blood lnnfocfaui6242-62-12 11:45:00* Test Item Value Reference Range Interpretation Comments lymphocytes as percent of blood leukocytes (test code = 317) 32 % [facility] Centerneutrophils as percent of blood fokycxlurt4675-84-69 11:45:00* Test Item Value Reference Range Interpretation Comments neutrophils as percent of blood leukocytes (test code = 316) 61 % [facility] Centerplatelet ikeye3232-23-89 11:45:00* Test Item Value Reference Range Interpretation Comments platelet count (test code = 66) 389 X10E3/UL 150-450 [facility] Centerred blood cell distribution suaje5707-85-10 11:45:00* Test Item Value Reference Range Interpretation Comments red blood cell distribution width (test code = 1030) 18.7 % 1 2.3-15.4 H [facility] Centermean corpuscular hemoglobin concentration, [id number] 11:45:00* Test Item Value Reference Range Interpretation Comments mean corpuscular hemoglobin concentration, RBC (test code = 1029) 27.5 G/DL 31.5-35.7 L [facility] corpus[facility] hemoglobin, [id number] 11:45:00* Test Item Value Reference Range Interpretation Comments mean corpuscular hemoglobin, RBC (test code = 1031) 16.4 pg 26 .6-33.0 L [facility]an corpuscular volume, [id number] 11:45:00* Test Item Value Reference Range Interpretation Comments mean corpuscular volume, RBC (test code = 315) 60 fL 79-97 L [facility] Centerhematocrit, affyw5436-63-72 11:45:00* Test Item Value Reference Range Interpretation Comments hematocrit, blood (test code = 64) 37.8 % 34.0-46.6 [facility] Centerhemoglobin, zhnld1950-73-07 11:45:00* Test Item Value Reference Range Interpretation Comments hemoglobin, blood (test code = 65) 10.4 g/dL 11.1-15.9 L [facility] Centererythrocyte (RBC) jzvqe0520-40-47 11:45:00* Test Item Value Reference Range Interpretation Comments erythrocyte (RBC) count (test code = 67) 6.34 X10E6/UL 3.77-5.28 H [facility] Centerleukocyte count, kbcib5334-13-51 11:45:00* Test Item Value Reference Range Interpretation Comments leukocyte count, blood (test code = 68) 10.1 X10E3/UL 3.4-10.8 [facility] Centerblood glucose, hcpntic6289-30-63 10:26:00* Test Item Value Reference Range Interpretation Comments blood glucose, fasting (test code = 7) 308 mg/dL [facility] CenterDNA PROBE CHLAMYDIA [id number] 18:06:00* Test Item Value Reference Range Interpretation Comments DNA PROBE CHLAMYDIA (test code = DNACH) Negative Negative DNA PROBE N.GONORRHEA (GC) (test code = DNAGC) Negative Negativ e Performed At: [facility] [place] [address] [id number] maureen Rodriguez MD Ph:[phone] DNA PROBE CHLAMYDIA [id number] 17:08:00* Test Item Value Reference Range Interpretation Comments DNA PROBE CHLAMYDIA (test code = DNACH) Negative Negative DNA PROBE N.GONORRHEA (GC) (test code = DNAGC) Negative Negativ e Performed At: [address], [place] [id number] maureen Rodriguez MD Ph:[phone] DNA NUCLEIC ACID (test code = DNANUC) UA RFLX MICR CULT IF [id number] 05:58:00* Test Item Value Reference Range Interpretation Comments UA COLOR (test code = COLU) YELLOW discript YEL/STRAW UA APPEARANCE (test code = APPU) CLEAR discript CLEAR UA GLUCOSE DIPSTICK (test code = DGLUU) 3+ mg/dL NEG UA BILIRUBIN DIPSTICK (test code = BILU) NEGATIVE mg/dL NEG UA KETONE DIPSTICK (test code = KETU) NEGATIVE mg/dL NEG UA SPECIFIC GRAVITY (test code = SGU) <=1.005 SG 1.005-1.030 UA BLOOD DIPSTICK (test code = MALIHA) TRACE mg/DL NEG A UA PH DIPSTICK (test code = LANA) 6.0 pH UNITS 5.0-7.0 UA PROTEIN DIPSTICK (test code = PROU) NEGATIVE mg/dL NEG UA UROBILINIOGEN DIPSTICK (test code = URO) 0.2 mg/dL <2.0 UA NITRITE DIPSTICK (test code = JALEN) NEGATIVE SCREEN NEG UA LEUKOCYTE ESTERASE DIPSTICK (test code = LEUU) NEGATIVE Leuk/mcL NEGATIVE UA WBC (test code = WBCU) 0-1 #WBC/HPF 0-3 UA RBC (test code = RBCU) 1-3 #RBC/HPF 0-3 UA BACTERIA (test code = BACU) NONE SEEN /HPF NONE-TRACE UA SQUAMOUS CELLS (test code = SQU) NONE SEEN /HPF NONE UA CULTURE NEEDED? (test code = UACULT) NO, WBC<10 Criteria Culture CHK SOURCE OF URINE: CLEAN CATCHIndication for culture: Suprapubic PainUR HCG [id number] 05:58:00* Test Item Value Reference Range Interpretation Comments UR HCG QUAL (test code = HCGQLU) NEGATIVE NEGATIVE SOURCE OF URINE: CLEAN CATCHIndication for culture: Suprapubic PainUA RFLX MICR CULT IF [id number] 05:55:00* Test Item Value Reference Range Interpretation Comments UA COLOR (test code = COLU) YELLOW discript YEL/STRAW UA APPEARANCE (test code = APPU) CLEAR discript CLEAR UA GLUCOSE DIPSTICK (test code = DGLUU) 3+ mg/dL NEG UA BILIRUBIN DIPSTICK (test code = BILU) NEGATIVE mg/dL NEG UA KETONE DIPSTICK (test code = KETU) NEGATIVE mg/dL NEG UA SPECIFIC GRAVITY (test code = SGU) <=1.005 SG 1.005-1.030 UA BLOOD DIPSTICK (test code = MALIHA) TRACE mg/DL NEG A UA PH DIPSTICK (test code = LANA) 6.0 pH UNITS 5.0-7.0 UA PROTEIN DIPSTICK (test code = PROU) NEGATIVE mg/dL NEG UA UROBILINIOGEN DIPSTICK (test code = URO) 0.2 mg/dL <2.0 UA NITRITE DIPSTICK (test code = JALEN) NEGATIVE SCREEN NEG UA LEUKOCYTE ESTERASE DIPSTICK (test code = LEUU) NEGATIVE Leuk/mcL NEGATIVE UA WBC (test code = WBCU) 0-1 #WBC/HPF 0-3 UA RBC (test code = RBCU) 1-3 #RBC/HPF 0-3 UA BACTERIA (test code = BACU) NONE SEEN /HPF NONE-TRACE UA SQUAMOUS CELLS (test code = SQU) NONE SEEN /HPF NONE UA CULTURE NEEDED? (test code = UACULT) NO, WBC<10 Criteria Culture CHK SOURCE OF URINE: CLEAN CATCHIndication for culture: Suprapubic PainUR HCG [id number] 05:55:00* Test Item Value Reference Range Interpretation Comments UR HCG QUAL (test code = HCGQLU) NEGATIVE SOURCE OF URINE: CLEAN CATCHIndication for culture: Suprapubic PainUA RFLX MICR CULT IF [id number] 05:27:00* Test Item Value Reference Range Interpretation Comments UA COLOR (test code = COLU) YELLOW discript YEL/STRAW UA APPEARANCE (test code = APPU) CLEAR discript CLEAR UA GLUCOSE DIPSTICK (test code = DGLUU) 3+ mg/dL NEG UA BILIRUBIN DIPSTICK (test code = BILU) NEGATIVE mg/dL NEG UA KETONE DIPSTICK (test code = KETU) NEGATIVE mg/dL NEG UA SPECIFIC GRAVITY (test code = SGU) <=1.005 SG 1.005-1.030 UA BLOOD DIPSTICK (test code = MALIHA) TRACE mg/DL NEG A UA PH DIPSTICK (test code = LANA) 6.0 pH UNITS 5.0-7.0 UA PROTEIN DIPSTICK (test code = PROU) NEGATIVE mg/dL NEG UA UROBILINIOGEN DIPSTICK (test code = URO) 0.2 mg/dL <2.0 UA NITRITE DIPSTICK (test code = JALEN) NEGATIVE SCREEN NEG UA LEUKOCYTE ESTERASE DIPSTICK (test code = LEUU) NEGATIVE Leuk/mcL NEGATIVE UA CULTURE NEEDED? (test code = UACULT) Criteria Culture CHK SOURCE OF URINE: CLEAN CATCHIndication for culture: Suprapubic PainUR HCG [id number] 05:27:00* Test Item Value Reference Range Interpretation Comments UR HCG QUAL (test code = HCGQLU) NEGATIVE SOURCE OF URINE: CLEAN CATCHIndication for culture: Suprapubic PainWET PREP 2018-10-26 23:17:00* Test Item Value Reference Range Interpretation Comments WBC WET PREP (BEAKER) (test code = 528) Moderate white blood cells seen CLUE CELLS (BEAKER) (test code = 526) No clue cells seen YEAST WET PREP (BEAKER) (test code = 530) Few budding yeast seen TRICH WET PREP (BEAKER) (test code = 531) No Trichomonas seen BACT WET PREP (BEAKER) (test code = 532) Moderate bacteria seen SCREEN, [id number] 23:04:00* Test Item Value Reference Range Interpretation Comments TEST URINE (BEAKER) (test code = 583) Negative POCT-GLUCOSE [id number] 22:23:00* Test Item Value Reference Range Interpretation Comments POC-GLUCOSE METER (BEAKER) (test code = 1538) 341 mg/dL 70-110 H Notified RAIZA KITCHEN/TESTED AT [facility] [id number] [place] [id number] URINALYSIS W/ REFLEX URINE [id number] 21:50:00* Test Item Value Reference Range Interpretation Comments COLOR (BEAKER) (test code = 470) Yellow CLARITY (BEAKER) (test code = 469) Clear SPECIFIC GRAVITY UA (BEAKER) (test code = 468) 1.015 1.001-1 .035 PH UA (BEAKER) (test code = 467) 5.5 5.0-8.0 PROTEIN UA (BEAKER) (test code = 464) Negative Negative GLUCOSE UA (BEAKER) (test code = 365) 500 mg/dL Negative A KETONES UA (BEAKER) (test code = 371) Trace Negative A BILIRUBIN UA (BEAKER) (test code = 462) Negative Negative BLOOD UA (BEAKER) (test code = 461) Trace Negative A NITRITE UA (BEAKER) (test code = 465) Negative Negative LEUKOCYTE ESTERASE UA (BEAKER) (test code = 466) Negative Negat moni UROBILINOGEN UA (BEAKER) (test code = 463) 1.0 mg/dL 0.2-1.0 BACTERIA (BEAKER) (test code = 517) Rare MUCUS (BEAKER) (test code = 1574) Occasional RBC UA-MANUAL (BEAKER) (test code = 1659) <5 /HPF WBC UA-MANUAL (BEAKER) (test code = 1661) <5 /HPF SQUAMOUS EPITHELIAL MANUAL (BEAKER) (test code = 1663) <5 /HPF SOURCE(BEAKER) (test code = 2795) STD PANEL - CT/GC [id number] 13:37:00* Test Item Value Reference Range Interpretation Comments SCAN RESULT (test code = 2859559) POCT-GLUCOSE [id number] 21:32:00* Test Item Value Reference Range Interpretation Comments POC-GLUCOSE METER (BEAKER) (test code = 1538) 215 mg/dL 70-110 H TESTED AT [facility] [id number] [place] [address] CBC W/PLT COUNT & AUTO [id number] 20:34:00* Test Item Value Reference Range Interpretation Comments WHITE BLOOD CELL COUNT (BEAKER) (test code = 775) 12.7 K/ L 4.0- 10.0 H RED BLOOD CELL COUNT (BEAKER) (test code = 761) 6.72 M/ L 4.00-5 .00 H Morphology: 1+ ANISOCYTOSIS; 2+ HYPOCHROMIA; 1+ POLYCHROMASIA; 2+ POIKILOCYTOSIS; 2+ MICROCYTES; Few TARGET CELLS; Few OVALOCYTES; and Few STOMATOCYTES seen on slide review. HEMOGLOBIN (BEAKER) (test code = 410) 11.0 GM/DL 12.0-15.0 L HEMATOCRIT (BEAKER) (test code = 411) 37.8 % 36.0-45.0 MEAN CORPUSCULAR VOLUME (BEAKER) (test code = 753) 56.3 fL 82. 0-99.0 L MEAN CORPUSCULAR HEMOGLOBIN (BEAKER) (test code = 751) 16.3 pg 27.0-33.0 L MEAN CORPUSCULAR HEMOGLOBIN CONC (BEAKER) (test code = 752) 29.0 GM/DL 32.0-36.0 L RED CELL DISTRIBUTION WIDTH (BEAKER) (test code = 412) 18.1 % 10.3-14.2 H PLATELET COUNT (BEAKER) (test code = 756) 573 K/CU MM 150-430 H MEAN PLATELET VOLUME (BEAKER) (test code = 754) 7.3 fL 6.5-10 .5 NEUTROPHILS RELATIVE PERCENT (BEAKER) (test code = 429) 58 % LYMPHOCYTES RELATIVE PERCENT (BEAKER) (test code = 430) 31 % MONOCYTES RELATIVE PERCENT (BEAKER) (test code = 431) 8 % EOSINOPHILS RELATIVE PERCENT (BEAKER) (test code = 432) 2 % BASOPHILS RELATIVE PERCENT (BEAKER) (test code = 437) 1 % NEUTROPHILS ABSOLUTE COUNT (BEAKER) (test code = 670) 7.34 K/ L 1.80-8.00 LYMPHOCYTES ABSOLUTE COUNT (BEAKER) (test code = 414) 3.98 K/ L 1.48-4.50 MONOCYTES ABSOLUTE COUNT (BEAKER) (test code = 415) 1.05 K/ L 0. 00-1.30 EOSINOPHILS ABSOLUTE COUNT (BEAKER) (test code = 416) 0.20 K/ L 0.00-0.50 BASOPHILS ABSOLUTE COUNT (BEAKER) (test code = 417) 0.10 K/ L 0. 00-0.20 URINALYSIS W/ [id number] 20:25:00* Test Item Value Reference Range Interpretation Comments COLOR (BEAKER) (test code = 470) Yellow CLARITY (BEAKER) (test code = 469) Slightly Cloudy SPECIFIC GRAVITY UA (BEAKER) (test code = 468) 1.025 1.001-1 .035 PH UA (BEAKER) (test code = 467) 5.0 5.0-8.0 PROTEIN UA (BEAKER) (test code = 464) Negative Negative GLUCOSE UA (BEAKER) (test code = 365) >=1000 mg/dL Negative A KETONES UA (BEAKER) (test code = 371) 15 mg/dL Negative A BILIRUBIN UA (BEAKER) (test code = 462) Negative Negative BLOOD UA (BEAKER) (test code = 461) Negative Negative NITRITE UA (BEAKER) (test code = 465) Negative Negative LEUKOCYTE ESTERASE UA (BEAKER) (test code = 466) Negative Negat moni UROBILINOGEN UA (BEAKER) (test code = 463) 0.2 mg/dL 0.2-1.0 BACTERIA (BEAKER) (test code = 517) Occasional MUCUS (BEAKER) (test code = 1574) Occasional RBC UA-MANUAL (BEAKER) (test code = 1659) <5 /HPF WBC UA-MANUAL (BEAKER) (test code = 1661) <5 /HPF SQUAMOUS EPITHELIAL MANUAL (BEAKER) (test code = 1663) 5-10 /HPF Occasional CLUE CELLS seen. SOURCE(BEAKER) (test code = 2795) BASIC METABOLIC [id number] 20:16:00* Test Item Value Reference Range Interpretation Comments SODIUM (BEAKER) (test code = 381) 137 meq/L 135-148 POTASSIUM (BEAKER) (test code = 379) 4.2 meq/L 3.6-5.5 CHLORIDE (BEAKER) (test code = 382) 104 meq/L 98-106 CO2 (BEAKER) (test code = 355) 22 meq/L 24-32 L BLOOD UREA NITROGEN (BEAKER) (test code = 354) 10 mg/dL 10-26 CREATININE (BEAKER) (test code = 358) 0.65 mg/dL 0.50-1.20 GLUCOSE RANDOM (BEAKER) (test code = 652) 306 mg/dL 70-110 H CALCIUM (BEAKER) (test code = 697) 9.0 mg/dL 8.5-10.5 EGFR (BEAKER) (test code = 1092) 142 mL/min/1.73 sq m ESTIMATED GFR IS NOT ACCURATE CREATININE CLEARANCE IN PREDICTING GLOMERULAR FILTRATION RATE. ESTIMATED GFR IS NOT APPLICABLE FOR DIALYSIS PATIENTS. SCREEN, [id number] 20:12:00* Test Item Value Reference Range Interpretation Comments TEST URINE (BEAKER) (test code = 583) Negative WET [id number] 19:57:00* Test Item Value Reference Range Interpretation Comments WBC WET PREP (BEAKER) (test code = 528) Many white blood cells seen CLUE CELLS (BEAKER) (test code = 526) Few clue cells seen YEAST WET PREP (BEAKER) (test code = 530) No budding yeast seen TRICH WET PREP (BEAKER) (test code = 531) No Trichomonas seen BACT WET PREP (BEAKER) (test code = 532) Many bacteria seen POCT-GLUCOSE [id number] 19:44:00* Test Item Value Reference Range Interpretation Comments POC-GLUCOSE METER (BEAKER) (test code = 1538) 283 mg/dL 70-110 H TESTED AT [facility] [id number] [facility] [id number] WET [id number] 22:53:00* Test Item Value Reference Range Interpretation Comments WBC WET PREP (BEAKER) (test code = 528) Few white blood cells seen CLUE CELLS (BEAKER) (test code = 526) Few clue cells seen YEAST WET PREP (BEAKER) (test code = 530) No budding yeast seen TRICH WET PREP (BEAKER) (test code = 531) No Trichomonas seen BACT WET PREP (BEAKER) (test code = 532) Few bacteria seen SCREEN, [id number] 21:52:00* Test Item Value Reference Range Interpretation Comments TEST URINE (BEAKER) (test code = 583) Negative URINALYSIS W/ [id number] 21:52:00* Test Item Value Reference Range Interpretation Comments COLOR (BEAKER) (test code = 470) Yellow CLARITY (BEAKER) (test code = 469) Clear SPECIFIC GRAVITY UA (BEAKER) (test code = 468) 1.045 1.001-1 .035 H PH UA (BEAKER) (test code = 467) 5.5 5.0-8.0 PROTEIN UA (BEAKER) (test code = 464) 30 mg/dL Negative A GLUCOSE UA (BEAKER) (test code = 365) 500 mg/dL Negative A KETONES UA (BEAKER) (test code = 371) Trace Negative A BILIRUBIN UA (BEAKER) (test code = 462) Negative Negative BLOOD UA (BEAKER) (test code = 461) Negative Negative NITRITE UA (BEAKER) (test code = 465) Negative Negative LEUKOCYTE ESTERASE UA (BEAKER) (test code = 466) Negative Negat moni UROBILINOGEN UA (BEAKER) (test code = 463) 0.2 mg/dL 0.2-1.0 RBC UA-MANUAL (BEAKER) (test code = 1659) <5 /HPF WBC UA-MANUAL (BEAKER) (test code = 1661) <5 /HPF SQUAMOUS EPITHELIAL MANUAL (BEAKER) (test code = 1663) <5 /HPF SOURCE(BEAKER) (test code = 1485)
== END 2020-01-16 09:20 | disposition home or self-care (01) ==
LOC: FSED 07:25
DX: E11.65 Type 2 diabetes mellitus with hyperglycemia (principal); Z76.0 Encounter for issue of repeat prescription; R51 Headache
CPT/HCPCS: 36415; 80048; 81003; 81025; 82948; 99284; J1817; J7030